=== PATIENT | female | born 1970 | race Caucasian/White ===

== ENCOUNTER 2016-12-30 19:09 | Emergency (ER) | payer OTHER ==
[~2016-12-30] VITALS: Ht 154.9 cm; Wt 108.9 kg
[~2016-12-30 19:09] MED LIST: ASPIRIN81 M1 PO; FLOMAX0.4 MG PO; GLUCOPHAGE500 MG PO; MOTRIN600 MG PO; NEURONTIN300 MG PO; NORCO 10/325 MG1 TAB PO
[2016-12-30 19:45] VITALS: BP 126/84
[2016-12-30] MEDS ORDERED: LIDOCAINE 1% 500 MG/50 ML VIAL INJ ONE (20:10)
[2016-12-30] MEDS ORDERED: HYDROcodone/APAP 5/325 MG 1 TAB TAB PO ONE (20:10)
--- NOTE | 2016-12-30 20:13 | NUR ---
AMBULATED TO ER BED 4
--- NOTE | 2016-12-30 20:50 | NUR ---
PT BIB SELF C/O SWELLING TO RT HAND 2ND FINGER X5DAYS AND HAS WORSENED IN THE PAST TWO DAYS. TOOK IBUPROFEN X1.5HOURS AGO WITH NO RELIEF. NO TRAUMA. HX DM. PARENT DENIES PT HAS N/V/D; SKIN IS INTACT, PINK/WARM/DRY; AAO, APPROPRIATE FOR AGE, PERRL; LUNGS CLEAR BL, BREATHING UNLABORED; HR EVEN AND REGULAR, BL PERIPHERAL PULSES PRESENT; BS ACTIVE X4, NO TENDERNESS TO PALPATION. PARENT DENIES ANY FEVER, CP, SOB, OR COUGH AT THIS TIME; 6/10 PAIN AT THIS TIME; VSS; PATIENT POSITIONED FOR COMFORT; HOB ELEVATED; BEDRAILS UP X2; BED DOWN.
--- NOTE | 2016-12-30 21:13 | NUR ---
DR OSORIO AT BEDSIDE.
[2016-12-30] MEDS ORDERED: NEOMYCIN/POLYMYXIN/BACITRACIN 0.9 GM/1 PKT TP ONE (21:32)
--- NOTE | 2016-12-30 21:40 | NUR ---
NEOSPORING AND DRESSING APPLIED TO AFFECTED FINGER PER DR'S ORDER. SUPPLIES PROVIDED FOR PT TO CHANGE DRESSING AT HOME, PER PHYSICIAN'S VERBAL ORDERS.
[2016-12-30 21:52] VITALS: BP 116/76
--- NOTE | 2016-12-30 21:52 | NUR ---
Patient discharged with v/s stable. Written and verbal after care instructions given and explained. Patient alert, oriented and verbalized understanding of instructions. Ambulatory with steady gait. All questions addressed prior to discharge. ID band removed. Patient advised to follow up FOR WOUND CARE THIS Monday01/01/17 IN THIS ER, OR COME BACK SOONER IF CONDITION GETS WORSE. Rx of BACTRIM, NORCO,MOTRIN, AND KEFLEX given. Patient educated on indication of medication including possible reaction and side effects. Opportunity to ask questions provided and answered.
== END 2016-12-30 21:52 | disposition home or self-care (01) ==
LOC: MED 19:09
DX: L03.011 Cellulitis of right finger (principal); E11.9 Type 2 diabetes mellitus without complications; I10 Essential (primary) hypertension; E03.9 Hypothyroidism, unspecified; Z79.82 Long term (current) use of aspirin
CPT/HCPCS: 26010; 73130; 82948; 99284; J2001; Q0092

== ENCOUNTER 2017-01-01 21:03 | Emergency (ER) | payer OTHER ==
[~2017-01-01] VITALS: Ht 154.9 cm; Wt 108.9 kg
[2017-01-01 21:15] VITALS: BP 122/72
--- NOTE | 2017-01-01 21:18 | NUR ---
TO ER OF1
--- NOTE | 2017-01-01 21:23 | NUR ---
Patient being evaluated by physician.
[2017-01-01] MEDS ORDERED: HYDROcodone/APAP 5/325 MG 1 TAB TAB PO ONE (21:45)
[2017-01-01 21:50] VITALS: BP 112/63
== END 2017-01-01 21:50 | disposition home or self-care (01) ==
LOC: MED 21:15
DX: M79.644 Pain in right finger(s) (principal); E11.9 Type 2 diabetes mellitus without complications; Z79.82 Long term (current) use of aspirin

== ENCOUNTER 2017-03-28 05:05 | Emergency (ER) | payer OTHER ==
[~2017-03-28] VITALS: Ht 157.5 cm; Wt 99.8 kg
[2017-03-28 05:08] VITALS: BP 124/85
--- NOTE | 2017-03-28 05:21 | NUR ---
PT TAKEN TO BED 8
--- NOTE | 2017-03-28 05:22 | NUR ---
Nicho pascal in [facility] - 03/28/[address] at [address] Whalen evaluating patient at bedside.
--- NOTE | 2017-03-28 05:29 | NUR ---
Dr. Whalen evaluating patient at bedside.
[2017-03-28] MEDS ORDERED: DICYCLOMINE 20 MG/2 ML VIAL IM ONE (05:35)
[2017-03-28] MEDS ORDERED: HYDROcodone/APAP 5/325 MG 1 TAB TAB PO ONE (05:35)
--- NOTE | 2017-03-28 06:05 | NUR ---
PT TAKEN TO CT
--- NOTE | 2017-03-28 06:09 | NUR ---
IV 20GA RT A/C DONE, BLOOD SENT TO LAB, UA DONE.
--- NOTE | 2017-03-28 06:35 | NUR ---
PT RETURN FROM CT
[2017-03-28 07:23] VITALS: BP 121/83
--- NOTE | 2017-03-28 07:23 | NUR ---
Patient discharged with v/s stable. Written and verbal after care instructions given and explained. Patient alert, oriented and verbalized understanding of instructions. Ambulatory with steady gait. All questions addressed prior to discharge. ID band removed. Patient advised to follow up with PMD. Rx of BENTYL given. Patient educated on indication of medication including possible reaction and side effects. Opportunity to ask questions provided and answered.
== END 2017-03-28 07:23 | disposition home or self-care (01) ==
LOC: MED 05:05
DX: R10.31 Right lower quadrant pain (principal); E11.9 Type 2 diabetes mellitus without complications; Z79.82 Long term (current) use of aspirin
CPT/HCPCS: 36415; 74176; 80053; 81001; 81025; 82948; 83690; 85025; 96372; 99285; J0500

== ENCOUNTER 2018-02-08 16:52 | Emergency (ER) | payer OTHER ==
[~2018-02-08] VITALS: Ht 160 cm; Wt 120.4 kg
[~2018-02-08 16:52] MED LIST changes: +ACET-787 PO; +ASPI81CT89 PO; -ASPIRIN81 M1 PO; -FLOMAX0.4 MG PO; -GLUCOPHAGE500 MG PO; +METF500T PO; -MOTRIN600 MG PO; -NEURONTIN300 MG PO; -NORCO 10/325 MG1 TAB PO
[2018-02-08 17:18] VITALS: BP 111/73
--- NOTE | 2018-02-08 17:32 | NUR ---
PATIENT PRESENTS TO ED WITH c/o HEADACHE 07/06 x today----with n/v and intermittent dizziness; denies injury, AAOX4 WITH EVEN AND STEADY GAIT; LUNGS CLEAR BL; HR EVEN AND REGULAR; PT DENIES ANY FEVER, CP, SOB, OR COUGH AT THIS TIME; VSS; ER MD MADE AWARE OF PT STATUS.
--- NOTE | 2018-02-08 19:08 | NUR ---
Patient being evaluated by physician at bedside.
[2018-02-08] MEDS: ONDANSETRON 4 MG ODT PO ONE (19:39)
--- NOTE | 2018-02-08 19:43 | NUR ---
Patient discharged with v/s stable. Written and verbal after care instructions given and explained. Patient alert, oriented and verbalized understanding of instructions. Ambulatory with steady gait. All questions addressed prior to discharge. ID band removed. Patient advised to follow up with PMD. Rx of ZOFRAN ODT 4MG AND FIORICET 50MG/325MG/40MG given. Patient educated on indication of medication including possible reaction and side effects. Opportunity to ask questions provided and answered.
[2018-02-08 19:44] VITALS: BP 116/62
== END 2018-02-08 19:43 | disposition home or self-care (01) ==
LOC: MED 16:52
DX: G44.209 Tension-type headache, unspecified, not intractable (principal); E11.9 Type 2 diabetes mellitus without complications; Z79.84 Long term (current) use of oral hypoglycemic drugs; Z79.899 Other long term (current) drug therapy
CPT/HCPCS: 82948; 99283; S0119

== ENCOUNTER 2019-01-11 19:34 | Emergency (ER) | payer OTHER ==
[~2019-01-11] VITALS: Ht 167.6 cm; Wt 81.6 kg
[~2019-01-11 19:34] MED LIST changes: +ASPI-1718 PO; -ASPI81CT89 PO
[2019-01-11 19:52] VITALS: BP 119/90
--- NOTE | 2019-01-11 20:13 | NUR ---
Patient ambulated to bed 6. RN evaluating patient at bedside.
--- NOTE | 2019-01-11 20:23 | NUR ---
48 Y/O F PT BIB SELF FOR WOUND ON R LEG FROM BIOPSY 18 DAYS AGO. PT REPORTS PAIN AT 7/10 AFTER TAKING IBUPROFEN. PT DENIES N/V/D; AAOX4, PERRL, WITH EVEN AND STEADY GAIT; PT DENIES ANY FEVER, CP, SOB, OR COUGH AT THIS TIME; PT STATES 7/10 PAIN AT THIS TIME; VSS; PATIENT POSITIONED FOR COMFORT; HOB ELEVATED; BEDRAILS UP X2; BED DOWN.
[2019-01-11] MEDS ORDERED: BACITRACIN OINT 500 UNITS/GM PKT TP ONE ×2 (20:55→21:02)
[2019-01-11 21:10] VITALS: BP 119/90
--- NOTE | 2019-01-11 21:11 | NUR ---
Patient discharged with v/s stable. Written and verbal after care instructions given and explained. Patient alert, oriented and verbalized understanding of instructions. Ambulatory with steady gait. All questions addressed prior to discharge. ID band removed. Patient advised to follow up with PMD. Rx of CLINDAMYCIN given. Patient educated on indication of medication including possible reaction and side effects. Opportunity to ask questions provided and answered.
== END 2019-01-11 21:11 | disposition home or self-care (01) ==
LOC: MED 19:34
DX: S81.802A Unspecified open wound, left lower leg, initial encounter (principal); L08.9 Local infection of the skin and subcutaneous tissue, unspecified; E11.9 Type 2 diabetes mellitus without complications; I10 Essential (primary) hypertension; Z79.82 Long term (current) use of aspirin; Z79.84 Long term (current) use of oral hypoglycemic drugs; Y84.8 Other medical procedures as the cause of abnormal reaction of the patient, or of later complication, without mention of misadventure at the time of the procedure
CPT/HCPCS: 99283